=== PATIENT | male | born 1955 | race African-American/Black ===

== ENCOUNTER 2018-07-23 13:28 | Observation (INO) | payer BC ==
--- NOTE | 2018-07-23 14:32 | PDOC ---
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 Patient states the vision has returned to normal and the slurred speech has resolved on its own. Patient reports similar symptoms 4 months ago while playing basketball while dehydrated. This happened two other times since then. Patient was put on ASA and plavix after the carotid endarterectomy but notes he never received the plavix. Patient also has not followed with his PCP. The patient denies chest pain, shortness of breath, headache. Denies fever, chills, nausea, vomit, diarrhea and constipation. De nies dysuria, frequency, urgency and hematuria. Allergies: NKA Past surgical history: as stated in HPI Social history: No reported alcohol, drug or cigarette use. - Physicial Exam PE: 07/23/18 18:11 ADULT PE GENERAL: The patient is in no acute distress. HEAD: Normal with no signs of trauma. NECK: Normal range of motion, supple without lymphadenopathy, JVD, or masses. LUNGS: Breath sounds equal, clear to auscultation bilaterally. No wheezes, and no crackles. HEART:Regular rate and rhythm, normal S1 and S2 without murmur, rub or gallop. ABDOMEN: Soft, nontender, normoactive bowel sounds. No guarding, no rebound. No masses palpable. EXTREMITIES: Normal range of motion, no edema. No clubbing or cyanosis. No erythema, or tenderness. NEUROLOGICAL: Cranial nerves II through XII grossly intact. Normal speech. No focal neurological deficits. MUSCULOSKELETAL: Back non-tender to palpation, no CVA tenderness SKIN: Warm, Dry, normal turgor, no rashes or lesions noted. <Judy Gray - Last Filed: 07/23/18 18:11> - Resident Resident Name: Jamaal Chavez - ED Attending Attestation I have performed the following: I have examined & evaluated the patient, The case was reviewed & discussed with the resident, I agree w/resident's findings & plan, Exceptions are as noted - Medical Decision Making 07/23/18 15:11 EKG - NSR, rate of 65 bpm , axis nml, intervals nml, no st elevations or depressions, t waves upright CT - no acute intracranial pathology 07/23/18 17:42 Laboratory Tests 07/23/18 07/23/18 07/23/18 14:51 14:51 14:51 WBC 5.9 Hgb 14.0 Hct 40.3 Plt Count 182 INR 1.07 Sodium 139 Potassium 4.5 Chloride 104 Carbon Dioxide 29 BUN 23 H Creatinine 1.8 H Random Glucose 79 Creatine Kinase Index 0.9 CK-MB (CK-2) 1.9 Troponin I 0.[address] Nicholas (per hospitalist request, pt may not need to be admitted) Pt signed out to Dr Wren Possible TIA 07/24/18 11:29 <Tgiist Gtz - Last Filed: 07/24/18 11:30> *DC/Admit/Observation/Transfer <Judy Gray - Last Filed: 07/23/18 18:11> - Discharge Dispostion Decision to Admit order: Yes <Tigist Gtz - Last Filed: 07/24/18 11:30> Diagnosis at time of Disposition: TIA (transient ischemic attack) - Discharge Dispostion Condition at time of disposition: Stable
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
[2018-07-23 15:07] LABS: BASO % 0.5 % (0-2.0); EOS % 2.1 % (0-4.5); HEMATOCRIT 40.3 % (35.4-49); LYMPH % 22.7 % (8-40); MCH 31.4 pg (25.7-33.7); MCHC 34.8 g/dl (32.0-35.9); MEAN CELL VOLUME 90.3 fl (80-96); MEAN PLT VOLUME 8.2 fl (7.5-11.1); MONO % 10.4 % (3.8-10.2); NEUT % 64.3 % (42.8-82.8); PLATELET COUNT 182 K/MM3 (134-434); RBC 4.47 M/mm3 (4.00-5.60); RDW 13.9 % (11.9-15.9); WHITE BLOOD COUNT 5.9 K/mm3 (4.0-10.0)
[2018-07-23 15:22] LABS: INR 1.07 (0.83-1.09); PROTHROMBIN TIME (PATIENT) 12.6 SEC (9.7-13.0)
[2018-07-23 15:39] LABS: ALBUMIN 3.7 g/dl (3.4-5.0); ALK PHOS 73 U/L (45-117); ANION GAP 6 MMOL/L (8-16); BILIRUBIN,TOTAL 0.5 mg/dL (0.2-1); BLOOD UREA NITROGEN 23 mg/dL (7-18); CHLORIDE 104 mmol/L (98-107); CHOLESTEROL 225 mg/dL (50-200); CO2 29 mmol/L (21-32); CREATININE 1.8 mg/dL (0.55-1.3); GLUCOSE,RANDOM 79 mg/dL (74-106); HDL CHOLESTEROL 98 mg/dL (40-60); POTASSIUM 4.5 mmol/L (3.5-5.1); SGOT/AST 22 U/L (15-37); SGPT/ALT 25 U/L (13-61); SODIUM 139 mmol/L (136-145); TOT PROT 6.7 g/dl (6.4-8.2); TRIGLYCERIDES 47 mg/dL (0-150)
[2018-07-23] MEDS ORDERED: SODIUM CHLORIDE 1,000 ML IV SCH (16:30)
[2018-07-23 16:45] LABS: URINE APPEARANCE CLEAR; URINE BILIRUBIN NEGATIVE (<2.0 mg/dL); URINE COLOR LTYELLOW; URINE GLUCOSE (UA) NEGATIVE (NEGATIVE); URINE KETONE TRACE (NEGATIVE); URINE LEUK ESTERASE NEGATIVE (NEGATIVE); URINE NITRITE NEGATIVE (NEGATIVE); URINE PROTEIN NEGATIVE (NEGATIVE); URINE UROBILINOGEN NEGATIVE mg/dL (0.2-1.0)
[2018-07-23 17:34] LABS: EPI CELLS RARE /HPF (FEW); URINE MUCUS RARE
--- NOTE | 2018-07-23 20:36 | PDOC ---
*Physical Exam - Vital Signs Last Vital Signs Temp Pulse Resp BP Pulse Ox 97.2 F L 70 18 142/80 100 07/23/18 13:28 07/23/18 18:04 07/23/18 18:04 07/23/18 18:04 07/23/18 18:04 ED Treatment Course - LABORATORY CBC & Chemistry Diagram: 07/23/18 14:51 07/24/18 05:49 - ADDITIONAL ORDERS Additional order review: Laboratory Results 07/23/18 07/23/18 07/23/18 14:51 14:51 14:39 PT with INR 12.60 INR 1.07 Sodium 139 Potassium 4.5 Chloride 104 Carbon Dioxide 29 Anion Gap 6 L BUN 23 H Creatinine 1.8 H Creat Clearance w eGFR 38.55 Random Glucose 79 Calcium 9.0 Total Bilirubin 0.5 AST 22 ALT 25 Alkaline Phosphatase 73 Creatine Kinase 196 Creatine Kinase Index 0.9 CK-MB (CK-2) 1.9 Troponin I 0.03 Total Protein 6.7 Albumin 3.7 Triglycerides 47 Cholesterol 225 H Total LDL Cholesterol 102 H HDL Cholesterol 98 H Urine Color Ltyellow Urine Appearance Clear Urine pH 5.0 Ur Specific [place] 1.014 Urine Protein Negative Urine Glucose (UA) Negative Urine Ketones Trace H Urine Blood 1+ H Urine Nitrite Negative Urine Bilirubin Negative Urine Urobilinogen Negative Ur Leukocyte Esterase Negative Urine WBC (Auto) 2 Urine RBC (Auto) 1 Ur Epithelial Cells Rare Urine Mucus Rare 07/23/18 14:51 RBC 4.47 MCV 90.3 MCHC 34.8 RDW 13.9 MPV 8.2 Neutrophils % 64.3 Lymphocytes % 22.7 Monocytes % 10.4 H Eosinophils % 2.1 Basophils % 0.5 - Consult/PCP Time Called: 16:31 (Left message with answering service -Dr. Harrison - Neuro consult) Medical Decision Making - Medical Decision Making 07/23/18 20:35 I received pt on signout and he is awaiting neuro consult at bedside. Neuro is here evaluating the patient. 07/24/18 00:43 Patient Name: TIERNEY MENJIVAR THIS IS A PRELIMINARY REPORT FROM [facility] DATE OF SERVICE: 2018-07-23 22:12:20 IMAGES: [id number] EXAM: NECK MRA WITHOUT CONTRAST HISTORY: Carotid stenosis COMPARISON: None. FINDINGS: Very limited study. Done without intravenous contrast. There is also some motion artifact. Right carotid: Most of the right common carotid artery is not visualized. Difficult to determine if this is due to occlusion or stenosis. Some of this could be due to artifact. The distal right common carotid artery is patent. The bifurcation is patent. The visualized portion of the cervical right internal carotid artery is patent without stenosis. Left carotid: The entire cervical left common and internal carotid artery is nonvisualized and may be occluded. Vertebrals The cervical right vertebral artery is dominant and appears patent. The left vertebral artery is small. The proximal portion of the left vertebral artery is not visualized. Given the limitations of this study, CT angiogram of the neck may be more helpful. THIS DOCUMENT HAS BEEN ELECTRONICALLY SIGNED 07/24/18 19:46 Pt will be admitted, given that he had NEW dizziness and gait instability that began today, despite his impressive carotid history. New findings. He needs to be evaluated with serial MRIs and neuro input. *DC/Admit/Observation/Transfer Diagnosis at time of Disposition: TIA (transient ischemic attack) - Discharge Dispostion Condition at time of disposition: Stable - Referrals - Patient Instructions - Post Discharge Activity
--- NOTE | 2018-07-23 21:03 | CON.NEURO ---
Consult Consult Specialty:: Cristopher Referred by:: Er - History of Present Illness History of Present Illness: 62 years old man AA with PMH CAd OA Carotid stenossi RCEA-stent Stage OV neck cancer ?? SCC presented with bright light and slurred speech and walking problem No fall No recent travel No headache No CP pr pa;[place] Had one migraine at age 18 Seen in [facility] Er Stable Back to his baseline - History Source History Provided By: Patient, Medical Record Limitations to Obtaining History: No Limitations - Alcohol/Substance Use Hx Alcohol Use: No - Smoking History Smoking history: Never smoked Have you smoked in the past 12 months: No Home Medications - Allergies Allergies/Adverse Reactions: Allergies Allergy/AdvReac Type Severity Reaction Status Date / Time No Known Allergies Allergy Verified 07/19/16 06:03 - Home Medications Home Medications: Ambulatory Orders Losartan Potassium [Cozaar] 25 mg PO BID 07/19/16 Simvastatin 20 mg PO HS 07/19/16 Family Disease History - Family Disease History Family History: Denies (cVA) Review of Systems - Review of Systems Constitutional: reports: No Symptoms Eyes: reports: No Symptoms Neurological: reports: No Symptoms Physical Exam-Neuro Vital Signs: Vital Signs Temperature 97.2 F L 07/23/18 13:28 Pulse Rate 70 07/23/18 18:04 Respiratory Rate 18 07/23/18 18:04 Blood Pressure 142/80 07/23/18 18:04 O2 Sat by Pulse Oximetry (%) 100 07/23/18 18:04 Constitutional: Yes: Well Nourished Neck: Yes: WNL Cardiovascular: Yes: WNL Labs: CBC, BMP 07/23/18 14:51 07/23/18 14:51 INR, PTT INR 1.07 (0.83-1.09) 07/23/18 14:51 - Neuro Exam Level Of Consciousness: Yes: Oriented to Person, Oriented to Place, Oriented to Time Eyes: Yes: PERRLA Speech: WNL Dominant Hand: Right Cranial Nerves II-XII Intact: Yes Gag: Present DTR's: 1+ Left Bicep, 1+ Right Bicep, 1+ Left Brachioradialis, 1+ Right Brachioradialis Response to light touch: Normal Response to pain prick: Normal Response to temperature: Normal Response to vibration: Normal Motor Strength: 3/5: Left Arm, Right Arm, Left Leg, Right Leg Imaging - Results Cat Scan: Image Reviewed Problem List - Problems (1) Ocular migraine Assessment/Plan: Bright light is not ischemic symptoms I am more worried about his right Carotid and his renal function NO CTA ANGIO due to dye ESR CRP Suggest HIV test MRA head and neck Admit to observe Nephrology consult Plavix Lipid panel Code(s): G43.109 - MIGRAINE WITH AURA, NOT INTRACTABLE, W/O STATUS MIGRAINOSUS
[2018-07-23] MEDS ORDERED: CLOPIDOGREL BISULFATE 75 MG TABLET (FP) PO ONE (21:04)
[2018-07-23] MEDS ORDERED: CLOPIDOGREL BISULFATE 75 MG TABLET (FP) ONE (21:18)
--- NOTE | 2018-07-23 22:04 | PN ---
Teaching Attending Note Name of Resident: Aisha Talley ATTENDING PHYSICIAN STATEMENT I saw and evaluated the patient. I reviewed the resident's note and discussed the case with the resident. I agree with the resident's findings and plan as documented. SUBJECTIVE: Seen and examined with resident; please see their note for further historical information. This is a patient with a history of CAD, Carotid A. Stenosis with known L complete occlusion who is s/p R-CEA, Stage IV Neck CA (s/p chemo/ radiation), migraine when younger, HTN. He presents after having an episode of 'bright lights' when everything appeared much brighter than normal that was, per his , associated with transient slurred speech and issues with ambulation; the aforementioned findings have since resolved and Neurology saw him in the ER who feels that this could be an occular migraine and are concerned about his R-CA. He was supposed to be on ASA and plavix for this but was having issues with paying for the plavix due to insurance. The patient was found to have elevated Cr to 1.8 (unknown if EDMUNDO or CKD as he has not been here before) which precluded him from CTA to assess carotids (duplex done which showed no flow in L and RVA with elevated peak systolic flow leading radiology to recommend a CTA); he thus had a MRV preformed. Will be brought to the floor on tele with a neurology consult and nephrology consult (which was recommended by neuro). He will be on observation. 10 sys ROS done and negative aside from HPI PMH and PSH reviewed FH asked and noncontributory Socially he is a nonsmoker and doesn't abuse alcohol Medication list reviewed and is pending reconciliation OBJECTIVE: VS, labs, imaging reviewed Labs show unremarkable CBC, coags. BMP shows Cr 1.8 and BUN of 23. TG wnl, total cholesterol 225, LDL 102, HDL 96 MRA neck pending final report; prelim shows R common CA not visualized ( artivact vs. occlusion, recommended CTA) alongside nonvisualized vertebral arteries; radiology recommends MRI of the brain to r/o posterior fossa infarct. ASSESSMENT AND PLAN: Patient presents with transient neurological findings; seen by neuro who are concerned about the patency of his R-carotid. Presenting sx have resolved. 1) Carotid A. Stenosis with Suspected Occular Migraine -Per neurology; defer ultimate workup and treatment to their service -Final report MRA pending; prelim was of poor quality and lead radiology to recommend CTA (which can't be done at this second due to elevated Cr); duplex reviewed. CTA to be ordered if renal function improves. -Checking ESR, CRP, HIV. Following neurology recomendations; please see their note for full details. Appreciate their input in the ongoing care of this patient. -Consider involving vascular sgy in the AM -Radiology recommends ordering MRI brain to evaluate for posterior fossa infarct which we will do. -Lipids elevated; will start high-intensity statin and extrapolate the ASCVD risk prior to DC to adjust the dose per guidelines 2) Elevated Cr (EDMUNDO vs. CKD) -Obtain FeNa; hold nephrotoxic medications and monitor BMP and UOP -Empirically hydrating with NS overnight -Would be helpful to check his old records to see what his baseline is 3) HLD -Started atorva 40 and will fully extrapolate ASCVD risk to place on appropriate dosing prior to DC -Monitor CMP with 1 week 4) History of Stage IV Neck CA -Followup OP with oncology; no acute issues. Being mindful of any radiation- induced changes 5) HTN FENA -NS@100 -PRN replete -Low fat -As tolerated, PT consult Full Code
--- NOTE | 2018-07-23 22:59 | HP ---
CHIEF COMPLAINT: bright vision PCP: HISTORY OF PRESENT ILLNESS: 62 y/o M with PMH stage 4 SCC R neck (s/p 30 days radiation, surgery 2003), HTN , R neck carotid endarterectomy w/stent (January 2018), known L total carotid occlusion, b/l cataracts, who presents to the ED c/o bright vision that started at 5PM this evening. States that he was at home, talking with his , when he noticed that everything in his field of vision appeared bright. Was not blurry. At this time, noticed that his speech became slurred and his gait became unsteady. Never noticed facial droop, MILLER, or other focal neurological deficits. Pt subsequently went to urgent care and was sent to [facility] ED for further evaluation. En route, states that in car when looking at his phone, it was so bright that his vision was obscured. Could not see the screen. Denies MILLER, fever , chills, SOB, chest pain , or pressure, or changes in urinary or bowel function at this time. ER course was notable for: (1) sx resolved (2) head CT (-) for acute changes (3) Recent Travel: denies PAST MEDICAL HISTORY: as above PAST SURGICAL HISTORY: as above, SCC R neck surgery 2003, R neck carotid endarterectomy w stent January 2018, L cataract surgery Social History: works in maintenance as a [employer] Smoking: denies Alcohol: denies Drugs: denies current use. used cocaine 20 yrs ago Family History: mother-DM, pancreatic CA. father- DM, heart dz Allergies No Known Allergies Allergy (Verified 07/19/16 06:03) HOME MEDICATIONS: Home Medications Medication Instructions Recorded Losartan Potassium [Cozaar] 25 mg PO DAILY 07/19/16 Simvastatin 20 mg PO HS 07/19/16 Gabapentin [Neurontin] 300 mg PO HS 07/23/18 REVIEW OF SYSTEMS CONSTITUTIONAL: Absent: fever, chills, diaphoresis, generalized weakness, malaise, loss of appetite, weight change HEENT: Absent: rhinorrhea, nasal congestion, throat pain, throat swelling, difficulty swallowing, mouth swelling, ear pain, eye pain, visual changes CARDIOVASCULAR: Absent: chest pain, syncope, palpitations, irregular heart rate, lightheadedness , peripheral edema RESPIRATORY: Absent: cough, shortness of breath, dyspnea with exertion, orthopnea, wheezing, stridor, hemoptysis GASTROINTESTINAL: Absent: abdominal pain, abdominal distension, nausea, vomiting, diarrhea, constipation, melena, hematochezia GENITOURINARY: Absent: dysuria, frequency, urgency, hesitancy, hematuria, flank pain, genital pain MUSCULOSKELETAL: Absent: myalgia, arthralgia, joint swelling, back pain, neck pain SKIN: Absent: rash, itching, pallor HEMATOLOGIC/IMMUNOLOGIC: Absent: easy bleeding, easy bruising, lymphadenopathy, frequent infections ENDOCRINE: Absent: unexplained weight gain, unexplained weight loss, heat intolerance, cold intolerance NEUROLOGIC: Absent: headache, focal weakness or paresthesias, dizziness, unsteady gait, seizure, mental status changes, bladder or bowel incontinence PSYCHIATRIC: Absent: anxiety, depression, suicidal or homicidal ideation, hallucinations. PHYSICAL EXAMINATION Vital Signs - 24 hr 07/23/18 07/23/18 13:28 18:04 Temperature 97.2 F L Pulse Rate 67 Pulse Rate [ 70 Left Radial] Respiratory 16 18 Rate Blood Pressure 163/96 Blood Pressure 142/80 [Left Arm] O2 Sat by Pulse 100 100 Oximetry (%) GENERAL: Very pleasant. Awake, alert, and fully oriented, in no acute distress. HEAD: Normal with no signs of trauma. EYES: Pupils equal, round and reactive to light, extraocular movements intact, sclera anicteric, conjunctiva clear. EARS, NOSE, THROAT: Ears normal, nares patent, oropharynx clear without exudates. Moist mucous membranes. NECK: Normal range of motion, supple LUNGS: Breath sounds equal, clear to auscultation bilaterally. No wheezes, and no crackles. No accessory muscle use. HEART: Regular rate and rhythm, normal S1 and S2 without murmur, rub or gallop. ABDOMEN: Soft, nontender, not distended, normoactive bowel sounds, no guarding LOWER EXTREMITIES: 2+ pt pulses, warm, well-perfused. No calf tenderness. No peripheral edema. NEUROLOGICAL: Cranial nerves II-XII intact. sensation intact. 5/5 motor strength upper and lower ext. no pronator drift PSYCHIATRIC: Cooperative. Good eye contact. SKIN: Warm, dry, normal turgor Laboratory Results - last 24 hr 07/23/18 07/23/18 07/23/18 14:39 14:51 14:51 WBC 5.9 RBC 4.47 Hgb 14.0 Hct 40.3 MCV 90.3 MCH 31.4 MCHC 34.8 RDW 13.9 Plt Count 182 MPV 8.2 Absolute Neuts (auto) 3.8 Neutrophils % 64.3 Lymphocytes % 22.7 Monocytes % 10.4 H Eosinophils % 2.1 Basophils % 0.5 Nucleated RBC % 0 PT with INR 12.60 INR 1.07 Sodium Cholesterol Total LDL Cholesterol HDL Cholesterol Urine Color Ltyellow Urine Appearance Clear Urine pH 5.0 Ur Specific [place] 1.014 Urine Protein Negative Urine Glucose (UA) Negative Urine Ketones Trace H Urine Blood 1+ H Urine Nitrite Negative Urine Bilirubin Negative Urine Urobilinogen Negative Ur Leukocyte Esterase Negative Urine WBC (Auto) 2 Urine RBC (Auto) 1 Ur Epithelial Cells Rare Urine Mucus Rare 07/23/18 14:51 RBC Nucleated RBC % INR Sodium 139 Potassium 4.5 Chloride 104 Carbon Dioxide 29 Anion Gap 6 L BUN 23 H Creatinine 1.8 H Creat Clearance w eGFR 38.55 Random Glucose 79 Calcium 9.0 Total Bilirubin 0.5 AST 22 ALT 25 Alkaline Phosphatase 73 Creatine Kinase 196 Creatine Kinase Index 0.9 CK-MB (CK-2) 1.9 Troponin I 0.03 Total Protein 6.7 Albumin 3.7 Triglycerides 47 Cholesterol 225 H Total LDL Cholesterol 102 H HDL Cholesterol 98 H Urine Color Urine Mucus Head CT: no acute intracranial pathology Carotid US: no definite flow in extracranial L carotid artery including the common carotid, internal carotid, external carotid segments. the reported US sensitivity and specificity for complete carotid a. occlusion is approximately 90%. evaluation of the extracranial R carotid a. demonstrates an elevated peak systolic flow velocity of 397 cm/s at the level of the mid common carotid a. as well as a somewhat elevated peak systolic flow velocity of 128 cm/s at the level of the carotid bulb. however in the setting of apparent contralateral carotid a occlusion, elevated flow velocities are not considered reliable in the detection of a hemodynamically significant stenosis. consider additional eval using CT angio. the vertebral aa. appear to demonstrate antegrade flow. ASSESSMENT/PLAN: 62 y/o M with PMH stage 4 SCC R neck (s/p 30 days radiation, surgery 2003), HTN , R neck carotid endarterectomy w/stent (January 2018), known L total carotid occlusion, b/l cataracts, who presents to the ED c/o bright vision that started at 5PM this evening. #Ocular migraine -with visual aura. does not fit sx TIA with bright vision -f/u MRA head and neck. no CTA b/c renal fnc. may need vascular pending result -c/w plavix, asa 81 -f/u ESR, CRP -stroke obs #?EDMUNDO, ?CKD -Cr 1.8- unclear whether or acute or chronic. need to know baseline. will need files from primary -will give gentle IVF -will calculate FEna once urine Na, creatinine return -recheck tomorrow. #F/E/N IV NS 42 cc/hr gentle hydration continue to follow lytes NPO until bedside swallow eval. then can eat #PPX DVT PPX: ambulation, on plavix #Dispo stroke obs Visit type - Emergency Visit Emergency Visit: Yes ED Registration Date: 07/23/18 Care time: The patient presented to the Emergency Department on the above date and was hospitalized for further evaluation of their emergent condition. - New Patient This patient is new to me today: Yes Date on this admission: 07/24/18 - Critical Care Critical Care patient: No
[2018-07-24] MEDS ORDERED: SODIUM CHLORIDE 1,000 ML IV SCH (01:15)
[2018-07-24 06:31] LABS: ANION GAP 6 MMOL/L (8-16); BLOOD UREA NITROGEN 20 mg/dL (7-18); CALCIUM 8.5 mg/dL (8.5-10.1); CHLORIDE 106 mmol/L (98-107); CO2 29 mmol/L (21-32); CREATININE 1.4 mg/dL (0.55-1.3); GLUCOSE,RANDOM 89 mg/dL (74-106); POTASSIUM 3.8 mmol/L (3.5-5.1); SODIUM 140 mmol/L (136-145)
[2018-07-24] MEDS ORDERED: CLOPIDOGREL BISULFATE 75 MG TABLET (FP) PO SCH (10:00)
[2018-07-24] MEDS: ASPIRIN COATED 81 MG TABLET.EC PO SCH (10:45)
[2018-07-24] MEDS: CLOPIDOGREL BISULFATE 75 MG TABLET (FP) PO SCH (10:46)
--- NOTE | 2018-07-24 13:08 | PN ---
Teaching Attending Note Name of Resident: Xochitl Zuniga ATTENDING PHYSICIAN STATEMENT I saw and evaluated the patient. I reviewed the resident's note and discussed the case with the resident. I agree with the resident's findings and plan as documented. SUBJECTIVE: no fever or chills. No abd pain. no visual changes, no weakness, numbness or tingling. he reports sx of bright vision x 10 min yesterday proceeded with slurred speech and abnormal gait ( brief ) sx resolved. OBJECTIVE: NAD , AAOx3. HEENT: NC, AT, EOMI, round equal pupils, reactive to light. no facial droop. MMM. R neck with scarred skin and no erythema. no LAP in neck CV: RRR, no MRG Lungs: CTAB Ext: no edema or erythema. Abd: NT, NL BS. Neuro : EOMI, round equal pupils, reactive to light. no facial droop. tongue at mid line . sensation to light touch NL. nose to finger NL. strength 5/5 in upper and lower ext proximally and distally. reflexes 2+ knee jerk and biceps b/l ASSESSMENT AND PLAN: 62 y/o man with h/o SCC of neck s/p radiation and sx 15 yr ago, HTN, CAD, occluded L carotid Artery s/p CEA, migraines at younger age,and other medical problems who presented with visual disterbances. 1- Visual disturbances: possible occular migraine vs TIA. neuro exam is NL, and sx resolved. - MRI of brain pending - appreciate neuro input. - vertebral arteries on prelim MRA are not well visualized . will wait for final report - tele 2- Known occluded L carotid artery and R sided carotid CEA : MRA with poor quality and final report is pending - vascular 3- EDMUNDO : likely prerenal. - cont IVF - hold ARB - obtain records 4- HLP : statin dispo : observe on tele pending full w/u
--- NOTE | 2018-07-24 13:28 | EKG ---
Test Reason : Blood Pressure : / mmHG Vent. Rate : 065 BPM Atrial Rate : 065 BPM P-R Int : 132 ms QRS Dur : 092 ms QT Int : 436 ms P-R-T Axes : 063 048 052 degrees QTc Int : 453 ms NORMAL SINUS RHYTHM POSSIBLE LEFT ATRIAL ENLARGEMENT BORDERLINE ECG NO PREVIOUS ECGS AVAILABLE Confirmed by LAUREL VICENTE, GLO ([id number]) on 07/24/2018 1:27:26 PM Referred By: Confirmed By:GLO BARRAGAN MD
[2018-07-24 13:34] LABS: RPR REACTIVE 1:2 (NONREACTIVE)
--- NOTE | 2018-07-24 14:58 | PN ---
Physical Exam: SUBJECTIVE: Patient seen and examined. He is feeling good today, no numbness, tingling, vision problems, headache, weakness, sensation changes. OBJECTIVE: Vital Signs Period Temp Pulse Resp BP Sys/Shaffer Pulse Ox Last 24 Hr 97.9 F 70-76 18-18 119-142/78-80 100-100 GENERAL: The patient is awake, alert, and fully oriented, in no acute distress. HEAD: Normal with no signs of trauma. EYES: PERRL, extraocular movements intact, sclera anicteric, conjunctiva clear. ENT: Moist mucous membranes. NECK: Trachea midline, full range of motion, supple, hyperpigmentation nd scar on right side of the neck. LUNGS: Breath sounds equal, clear to auscultation bilaterally, no wheezes, no crackles, no accessory muscle use. HEART: Regular rate and rhythm, S1, S2 without murmur, rub or gallop. ABDOMEN: Soft, nontender, nondistended, normoactive bowel sounds, no guarding, no rebound, no hepatosplenomegaly, no masses. EXTREMITIES: 2+ pulses, warm, well-perfused, no edema. NEUROLOGICAL: Cranial nerves II through XII grossly intact. Normal speech, gait not observed. PSYCH: Normal mood, normal affect. SKIN: Warm, dry, normal turgor, no rashes. Laboratory Results - last 24 hr 07/23/18 07/23/18 07/23/18 14:39 14:51 14:51 WBC 5.9 RBC 4.47 Hgb 14.0 Hct 40.3 MCV 90.3 MCH 31.4 MCHC 34.8 RDW 13.9 Plt Count 182 MPV 8.2 Absolute Neuts (auto) 3.8 Neutrophils % 64.3 Lymphocytes % 22.7 Monocytes % 10.4 H Eosinophils % 2.1 Basophils % 0.5 Nucleated RBC % 0 ESR PT with INR 12.60 INR 1.07 Sodium Potassium Chloride Carbon Dioxide Anion Gap BUN Creatinine Creat Clearance w eGFR Random Glucose Hemoglobin A1c % Calcium Total Bilirubin AST ALT Alkaline Phosphatase Creatine Kinase Creatine Kinase Index CK-MB (CK-2) Troponin I C-Reactive Protein Total Protein Albumin Triglycerides Cholesterol Total LDL Cholesterol HDL Cholesterol Vitamin B12 Urine Color Ltyellow Urine Appearance Clear Urine pH 5.0 Ur Specific [place] 1.014 Urine Protein Negative Urine Glucose (UA) Negative Urine Ketones Trace H Urine Blood 1+ H Urine Nitrite Negative Urine Bilirubin Negative Urine Urobilinogen Negative Ur Leukocyte Esterase Negative Urine WBC (Auto) 2 Urine RBC (Auto) 1 Ur Epithelial Cells Rare Urine Mucus Rare Ur Random Sodium Urine Creatinine RPR Titer 07/23/18 07/24/18 07/24/18 14:51 05:49 05:49 WBC RBC Hgb Hct MCV MCH MCHC RDW Plt Count MPV Absolute Neuts (auto) Neutrophils % Lymphocytes % Monocytes % Eosinophils % Basophils % Nucleated RBC % ESR PT with INR INR Sodium 139 140 Potassium 4.5 3.8 Chloride 104 106 Carbon Dioxide 29 29 Anion Gap 6 L 6 L BUN 23 H 20 H Creatinine 1.8 H 1.4 H Creat Clearance w eGFR 38.55 51.52 Random Glucose 79 89 Hemoglobin A1c % 5.6 Calcium 9.0 8.5 Total Bilirubin 0.5 AST 22 ALT 25 Alkaline Phosphatase 73 Creatine Kinase 196 Creatine Kinase Index 0.9 CK-MB (CK-2) 1.9 Troponin I 0.03 C-Reactive Protein Total Protein 6.7 Albumin 3.7 Triglycerides 47 Cholesterol 225 H Total LDL Cholesterol 102 H HDL Cholesterol 98 H Vitamin B12 395 Urine Color Urine Appearance Urine pH Ur Specific [place] Urine Protein Urine Glucose (UA) Urine Ketones Urine Blood Urine Nitrite Urine Bilirubin Urine Urobilinogen Ur Leukocyte Esterase Urine WBC (Auto) Urine RBC (Auto) Ur Epithelial Cells Urine Mucus Ur Random Sodium Urine Creatinine RPR Titer 07/24/18 07/24/18 07/24/18 06:00 08:30 08:30 WBC RBC Hgb Hct MCV MCH MCHC RDW Plt Count MPV Absolute Neuts (auto) Neutrophils % Lymphocytes % Monocytes % Eosinophils % Basophils % Nucleated RBC % ESR PT with INR INR Sodium Potassium Chloride Carbon Dioxide Anion Gap BUN Creatinine Creat Clearance w eGFR Random Glucose Hemoglobin A1c % Calcium Total Bilirubin AST ALT Alkaline Phosphatase Creatine Kinase Creatine Kinase Index CK-MB (CK-2) Troponin I C-Reactive Protein 0.9 H Total Protein Albumin Triglycerides Cholesterol Total LDL Cholesterol HDL Cholesterol Vitamin B12 Urine Color Urine Appearance Urine pH Ur Specific [place] Urine Protein Urine Glucose (UA) Urine Ketones Urine Blood Urine Nitrite Urine Bilirubin Urine Urobilinogen Ur Leukocyte Esterase Urine WBC (Auto) Urine RBC (Auto) Ur Epithelial Cells Urine Mucus Ur Random Sodium 73 Urine Creatinine 203.0 H RPR Titer Reactive 1:2 H 07/24/18 08:31 WBC RBC Hgb Hct MCV MCH MCHC RDW Plt Count MPV Absolute Neuts (auto) Neutrophils % Lymphocytes % Monocytes % Eosinophils % Basophils % Nucleated RBC % ESR 15 PT with INR INR Sodium Potassium Chloride Carbon Dioxide Anion Gap BUN Creatinine Creat Clearance w eGFR Random Glucose Hemoglobin A1c % Calcium Total Bilirubin AST ALT Alkaline Phosphatase Creatine Kinase Creatine Kinase Index CK-MB (CK-2) Troponin I C-Reactive Protein Total Protein Albumin Triglycerides Cholesterol Total LDL Cholesterol HDL Cholesterol Vitamin B12 Urine Color Urine Appearance Urine pH Ur Specific [place] Urine Protein Urine Glucose (UA) Urine Ketones Urine Blood Urine Nitrite Urine Bilirubin Urine Urobilinogen Ur Leukocyte Esterase Urine WBC (Auto) Urine RBC (Auto) Ur Epithelial Cells Urine Mucus Ur Random Sodium Urine Creatinine RPR Titer Active Medications Generic Name Dose Route Start Last Admin Trade Name Freq PRN Reason Stop Dose Admin Aspirin 81 mg 07/24/18 10:00 07/24/18 10:45 Ecotrin - PO 81 mg DAILY ZOYA Administration Atorvastatin Calcium 40 mg 07/24/18 22:00 Lipitor - PO HS ZOYA Clopidogrel Bisulfate 75 mg 07/24/18 10:00 07/24/18 10:46 Plavix - PO 75 mg DAILY ZOYA Administration Sodium Chloride 1,000 mls @ 100 mls/hr 07/24/18 01:15 07/24/18 02:26 Normal Saline - IV 100 mls/hr ASDIR ZOYA Administration Head CT: no acute intracranial pathology Carotid US: no definite flow in extracranial L carotid artery including the common carotid, internal carotid, external carotid segments. the reported US sensitivity and specificity for complete carotid a. occlusion is approximately 90%. evaluation of the extracranial R carotid a. demonstrates an elevated peak systolic flow velocity of 397 cm/s at the level of the mid common carotid a. as well as a somewhat elevated peak systolic flow velocity of 128 cm/s at the level of the carotid bulb. however in the setting of apparent contralateral carotid a occlusion, elevated flow velocities are not considered reliable in the detection of a hemodynamically significant stenosis. consider additional eval using CT angio. the vertebral aa. appear to demonstrate antegrade flow. ASSESSMENT/PLAN: 62 y/o M with PMH stage 4 SCC R neck (s/p 30 days radiation, surgery 2003), HTN , R neck carotid endarterectomy w/stent (January 2018), known L total carotid occlusion, b/l cataracts, who presents to the ED c/o bright vision that started at 5PM this evening. Ocular migraine r/o stroke -f/u MRA head and neck, -c/w plavix, asa 81 -f/u ESR, CRP -stroke obs -speech and swallow -resumed low Na diet -Vascular surgery consulted EDMUNDO -Cr 1.8- unclear whether or acute or chronic, improved 1.4 today, will f/u with PCP on Thursday PCP Dr Isis Light [phone] -continue 1/2 NS at 100 cc/hr -f/u Dr Thao recommendations -f/u renal US Hypothyroidism: -cont Levothyroxin 50 mcg F/E/N 1/2 NS/no changes/Low a PPX DVT PPX: plavix Dispo stroke obs Medications confirmed with pharmacy. Problem List - Problems (1) EDMUNDO (acute kidney injury) Code(s): N17.9 - ACUTE KIDNEY FAILURE, UNSPECIFIED (2) Ocular migraine Code(s): G43.109 - MIGRAINE WITH AURA, NOT INTRACTABLE, W/O STATUS MIGRAINOSUS (3) Hypertension Code(s): I10 - ESSENTIAL (PRIMARY) HYPERTENSION Visit type - Emergency Visit Emergency Visit: Yes ED Registration Date: 07/23/18 Care time: The patient presented to the Emergency Department on the above date and was hospitalized for further evaluation of their emergent condition. - New Patient This patient is new to me today: Yes Date on this admission: 07/24/18 - Critical Care Critical Care patient: No - Discharge Referral Referred to [facility] No
[2018-07-24 15:12] LABS: TREPONEMA ANTIBODY REACTIVE (NONREACTIVE)
--- NOTE | 2018-07-24 17:20 | CONSULT ---
Consult Consult Specialty:: Nephrology Reason for Consultation:: EMDUNDO - History of Present Illness Chief Complaint: slurred speech and change in vision History of Present Illness: Pt is a 62 year old male with pmhx of SCC of right neck and HTN who presents to the ER with slurred speech and visual disturbance. I was called to evaluate him as his creatinine was elevated. He denies history of CKD. He denies dysuria or hematuria. He is on hctz at home for htn. He denies nsaid use. He denies family hx of renal disease. He denies lower ext edema. He denies shortness of breath or chest pain. - History Source History Provided By: Patient - Past Medical History Cardio/Vascular: Yes: HTN, Hyperlipdemia Heme/Onc: Yes: Other (SCC neck) - Alcohol/Substance Use Hx Alcohol Use: No - Smoking History Smoking history: Never smoked Have you smoked in the past 12 months: No Home Medications - Allergies Allergies/Adverse Reactions: Allergies Allergy/AdvReac Type Severity Reaction Status Date / Time No Known Allergies Allergy Verified 07/19/16 06:03 - Home Medications Home Medications: Ambulatory Orders Losartan Potassium [Cozaar] 25 mg PO DAILY 07/19/16 Simvastatin 20 mg PO HS 07/19/16 Gabapentin [Neurontin] 300 mg PO HS 07/23/18 Family Disease History - Family Disease History Family History: Denies Review of Systems - Review of Systems Constitutional: reports: Malaise Eyes: reports: Blurred Vision, Photophobia, Recent Change in Vision HENT: reports: No Symptoms Neck: reports: No Symptoms Cardiovascular: reports: No Symptoms Respiratory: reports: No Symptoms Gastrointestinal: reports: No Symptoms Genitourinary: reports: No Symptoms Musculoskeletal: reports: No Symptoms Integumentary: reports: No Symptoms Neurological: reports: Change in Speech Endocrine: reports: No Symptoms Hematology/Lymphatic: reports: No Symptoms Psychiatric: reports: No Symptoms Physical Exam Vital Signs: Vital Signs Temperature 97.9 F 07/24/18 06:34 Pulse Rate 76 07/24/18 06:34 Respiratory Rate 18 07/24/18 06:34 Blood Pressure 119/78 07/24/18 06:34 O2 Sat by Pulse Oximetry (%) 100 07/24/18 06:34 Constitutional: Yes: Calm Eyes: Yes: Conjunctiva Clear HENT: Yes: Atraumatic Neck: Yes: Supple Cardiovascular: Yes: S1, S2 Respiratory: Yes: CTA Bilaterally Gastrointestinal: Yes: Normal Bowel Sounds, Soft Renal/: Yes: WNL Musculoskeletal: Yes: WNL Edema: No Neurological: Yes: Oriented Psychiatric: Yes: Oriented Labs: CBC, BMP 07/23/18 14:51 07/24/18 05:49 Laboratory Tests 07/23/18 07/23/18 07/24/18 14:39 14:51 05:49 Potassium 3.8 Creatinine 1.8 H 1.4 H Urine Blood 1+ H Imaging - Results Chest X-ray: Report Reviewed Problem List - Problems (1) EDMUNDO (acute kidney injury) Code(s): N17.9 - ACUTE KIDNEY FAILURE, UNSPECIFIED (2) Ocular migraine Code(s): G43.109 - MIGRAINE WITH AURA, NOT INTRACTABLE, W/O STATUS MIGRAINOSUS (3) Eye pain Code(s): H57.10 - OCULAR PAIN, UNSPECIFIED EYE (4) Hypertension Code(s): I10 - ESSENTIAL (PRIMARY) HYPERTENSION Assessment/Plan Current Medications Generic Name Dose Route Start Last Admin Trade Name Ben PRN Reason Stop Dose Admin Aspirin 81 mg 07/24/18 10:00 07/24/18 10:45 Ecotrin - PO 81 mg DAILY ZOYA Administration Atorvastatin Calcium 40 mg 07/24/18 22:00 Lipitor - PO HS ZOYA Clopidogrel Bisulfate 75 mg 07/24/18 10:00 07/24/18 10:46 Plavix - PO 75 mg DAILY ZOYA Administration Sodium Chloride 1,000 mls @ 100 mls/hr 07/24/18 01:15 07/24/18 02:26 Normal Saline - IV 100 mls/hr ASDIR ZOYA Administration Impression 1. EDMUNDO 2. HTN 3. hx SCC 4. occular migraine Plan - check renal ultrasound - automatic hemmer is improving - hold arb and thiazide for now - cont fluids, change to 1/2 ns - repeat labs in am - will need outpt workup Dr Thao
[2018-07-24] MEDS ORDERED: SODIUM CHLORIDE 0.45% 1,000 ML IV SCH (17:30)
[2018-07-24] MEDS ORDERED: ATORVASTATIN CA 10 MG TABLET (FP) PO SCH (22:00)
[2018-07-24] MEDS ORDERED: ATORVASTATIN CA 40 MG TABLET (FP) PO SCH (22:00)
[2018-07-25] MEDS ORDERED: LEVOTHYROXINE NA 50 MCG TABLET (FP) PO SCH (06:00)
[2018-07-25 07:48] LABS: ALBUMIN 3.1 g/dl (3.4-5.0); ALK PHOS 71 U/L (45-117); ANION GAP 7 MMOL/L (8-16); BILIRUBIN,TOTAL 0.4 mg/dL (0.2-1); BLOOD UREA NITROGEN 13 mg/dL (7-18); CALCIUM 8.8 mg/dL (8.5-10.1); CHLORIDE 106 mmol/L (98-107); CO2 26 mmol/L (21-32); GLUCOSE,RANDOM 90 mg/dL (74-106); POTASSIUM 4.1 mmol/L (3.5-5.1); SGOT/AST 15 U/L (15-37); SGPT/ALT 21 U/L (13-61); SODIUM 139 mmol/L (136-145)
[2018-07-25 09:29] VITALS: PULSE 72; TEMP 98
[2018-07-25] MEDS: CLOPIDOGREL BISULFATE 75 MG TABLET (FP) PO SCH (10:57)
[2018-07-25] MEDS: ASPIRIN COATED 81 MG TABLET.EC PO SCH (10:57)
[2018-07-25 11:04] VITALS: BP 180/98
--- NOTE | 2018-07-25 13:19 | PN ---
Progress Note, Physician History of Present Illness: events noted Chart reviewed Patient seen on telemetry Since admission patient with no symptoms no headache no blurry vision or double vision no difficulty with speech no difficulty swallowing no recurrence of the visual symptoms with the bright light. I looked at the MRI of the brain which revealed no evidence of acute pathology. MRA of the head and neck results are still pending. - Current Medication List Current Medications: Active Medications Aspirin (Ecotrin -) 81 mg PO DAILY [facility] Last Admin: 07/25/18 10:57 Dose: 81 mg Atorvastatin Calcium (Lipitor -) 40 mg PO HS [facility] Last Admin: 07/24/18 22:06 Dose: 40 mg Clopidogrel Bisulfate (Plavix -) 75 mg PO DAILY [facility] Last Admin: 07/25/18 10:57 Dose: 75 mg Sodium Chloride (1/2 Normal Saline) 1,000 mls @ 75 mls/hr IV ASDIR [facility] Last Admin: 07/24/18 23:00 Dose: 75 mls/hr Levothyroxine Sodium (Synthroid -) 50 mcg PO DAILY@0700 [facility] Last Admin: 07/25/18 06:38 Dose: 50 mcg - Objective Vital Signs: Vital Signs Temperature 98 F 07/25/18 09:00 Pulse Rate 72 07/25/18 09:00 Respiratory Rate 20 07/25/18 09:00 Blood Pressure 180/98 H 07/25/18 09:00 O2 Sat by Pulse Oximetry (%) 100 07/25/18 09:00 Constitutional: Yes: Well Nourished Eyes: Yes: WNL Neurological: Yes: Alert, Oriented, Babinski negative Labs: CBC, BMP 07/23/18 14:51 07/25/18 06:15 INR, PTT INR 1.07 (0.83-1.09) 07/23/18 14:51 Problem List - Problems (1) Ocular migraine Assessment/Plan: no evidence of acute stroke Carotid stenosis History of syphilis No evidence of neurosyphilis 1. Follow up the results of the MRA Neurologically patient can be discharged to follow-up with vascular surgery from [facility]. 3. 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 Code(s): G43.109 - MIGRAINE WITH AURA, NOT INTRACTABLE, W/O STATUS MIGRAINOSUS
--- NOTE | 2018-07-25 13:22 | PN ---
Progress Note, Physician History of Present Illness: Pt seen and examined at bedside. He is awake and alert. He denies dysuria. - Current Medication List Current Medications: Active Medications Aspirin (Ecotrin -) 81 mg PO DAILY [facility] Last Admin: 07/25/18 10:57 Dose: 81 mg Atorvastatin Calcium (Lipitor -) 40 mg PO HS [facility] Last Admin: 07/24/18 22:06 Dose: 40 mg Clopidogrel Bisulfate (Plavix -) 75 mg PO DAILY [facility] Last Admin: 07/25/18 10:57 Dose: 75 mg Sodium Chloride (1/2 Normal Saline) 1,000 mls @ 75 mls/hr IV ASDIR [facility] Last Admin: 07/24/18 23:00 Dose: 75 mls/hr Levothyroxine Sodium (Synthroid -) 50 mcg PO DAILY@0700 [facility] Last Admin: 07/25/18 06:38 Dose: 50 mcg - Objective Vital Signs: Vital Signs Temperature 98 F 07/25/18 09:00 Pulse Rate 72 07/25/18 09:00 Respiratory Rate 20 07/25/18 09:00 Blood Pressure 180/98 H 07/25/18 09:00 O2 Sat by Pulse Oximetry (%) 100 07/25/18 09:00 Constitutional: Yes: Calm Eyes: Yes: Conjunctiva Clear HENT: Yes: Atraumatic Neck: Yes: Supple Cardiovascular: Yes: S1, S2 Respiratory: Yes: CTA Bilaterally Gastrointestinal: Yes: Soft Genitourinary: Yes: WNL Musculoskeletal: Yes: WNL Edema: No Neurological: Yes: Oriented Psychiatric: Yes: Oriented Labs: CBC, BMP 07/23/18 14:51 07/25/18 06:15 INR, PTT INR 1.07 (0.83-1.09) 07/23/18 14:51 Problem List - Problems (1) EDMUNDO (acute kidney injury) Code(s): N17.9 - ACUTE KIDNEY FAILURE, UNSPECIFIED (2) Ocular migraine Code(s): G43.109 - MIGRAINE WITH AURA, NOT INTRACTABLE, W/O STATUS MIGRAINOSUS (3) Eye pain Code(s): H57.10 - OCULAR PAIN, UNSPECIFIED EYE (4) Hypertension Code(s): I10 - ESSENTIAL (PRIMARY) HYPERTENSION Assessment/Plan Current Medications Generic Name Dose Route Start Last Admin Trade Name Freq PRN Reason Stop Dose Admin Aspirin 81 mg 07/24/18 10:00 07/25/18 10:57 Ecotrin - PO 81 mg DAILY ZOYA Administration Atorvastatin Calcium 40 mg 07/24/18 22:00 07/24/18 22:06 Lipitor - PO 40 mg HS ZOYA Administration Clopidogrel Bisulfate 75 mg 07/24/18 10:00 07/25/18 10:57 Plavix - PO 75 mg DAILY ZOYA Administration Sodium Chloride 1,000 mls @ 75 mls/hr 07/24/18 17:30 07/24/18 23:00 1/2 Normal Saline IV 75 mls/hr ASDIR ZOYA Administration Levothyroxine Sodium 50 mcg 07/25/18 06:00 07/25/18 06:38 Synthroid - PO 50 mcg DAILY@0700 ZOYA Administration Laboratory Tests 07/24/18 06:00 RPR Titer Reactive 1:2 H T.pallidum Ab (MHA) Reactive Impression 1. EDMUNDO 2. HTN 3. hx SCC 4. occular migraine 5. positive rpr Plan - renal function is improved - renal ultrasound reviewed - bp is elevated - d/c fluids - restart losartan - monitor vitals - hold thiazide - repeat labs in am - will need outpt workup Dr Thao
[2018-07-25] MEDS ORDERED: LOSARTAN POTASSIUM 25 MG TABLET PO SCH (13:30)
--- NOTE | 2018-07-25 14:43 | PN ---
Progress Note (short form) - Note Progress Note: Subjective: no fever or chills. no pain, No MILLER , no weakness, no visual Objective: Vital Signs: Last Vital Signs Temp Pulse Resp BP Pulse Ox 98 F 72 20 180/98 H 100 07/25/18 09:00 07/25/18 09:00 07/25/18 09:00 07/25/18 09:00 07/25/18 09:00 Laboratory Results - last 24 hr 07/25/18 06:15 Sodium 139 Potassium 4.1 Chloride 106 Carbon Dioxide 26 Anion Gap 7 L BUN 13 Creatinine 1.0 Creat Clearance w eGFR > 60 Random Glucose 90 Calcium 8.8 Total Bilirubin 0.4 AST 15 ALT 21 Alkaline Phosphatase 71 Total Protein 6.0 L Albumin 3.1 L Physical Exam: NAD , AAOx3. HEENTMMM. R neck with scarred skin and no erythema. no LAP in neck CV: RRR, no MRG Lungs: CTAB Ext: no edema or erythema. Abd: NT, NL BS. Neuro : EOMI, round equal pupils, reactive to light. no facial droop. tongue at mid line . sensation to light touch NL. nose to finger NL. strength 5/5 in upper and lower ext proximally and distally. reflexes 2+ knee jerk and biceps b/l ASSESSMENT AND PLAN: 62 y/o man with h/o SCC of neck s/p radiation and sx 15 yr ago, HTN, CAD, occluded L carotid Artery s/p CEA, migraines at younger age,and other medical problems who presented with visual disterbances. 1- Visual disturbances: possible occular migraine . case d/w Dr. Nicholas - MRI of brain still pending , but was reviewed by Dr. Nicholas and no acute stroke was found. MRA of brain and MRA of neck report still pending. - vascular follow up can be done as out pt. patient understands he needs to follow with his vascular surgeon and that MRA /MRI reports need to be obtained - tele with no events - No LP needed per discussion with neuro 2- Known occluded L carotid artery and R sided carotid CEA : MRA with poor quality and final report is pending - vascular as out pt 3- EDMUNDO: likely prerenal. - resolved. cont home meds and po hydration . blood work in 1 week to determine if HCTZ need to be decreased or discontinued 4- - positive syphilis serology. treponemal and non treponemal test. pt has h/ o treated syphilis 15 yrs ago. no previous labs available. he was advised to follow with ID as old tests need to be obtained and compared ( non treponemal usually decrease and revert into nonreactive after treatment ) dispo : patient dose want to go home and will follow up with neuro , ID , PCP . Visit type - Emergency Visit Emergency Visit: Yes ED Registration Date: 07/23/18 Care time: The patient presented to the Emergency Department on the above date and was hospitalized for further evaluation of their emergent condition. - New Patient This patient is new to me today: No - Critical Care Critical Care patient: No - Discharge Referral Referred to [facility] Med P.C.: No
--- NOTE | 2018-07-25 17:45 | DS ---
Physical Examination Vital Signs: Vital Signs Temperature 98 F 07/25/18 09:00 Pulse Rate 72 07/25/18 09:00 Respiratory Rate 20 07/25/18 09:00 Blood Pressure 180/98 H 07/25/18 09:00 O2 Sat by Pulse Oximetry (%) 100 07/25/18 09:00 Findings/Remarks: NAD , AAOx3. HEENTMMM. R neck with scarred skin and no erythema. no LAP in neck CV: RRR, no MRG Lungs: CTAB Ext: no edema or erythema. Abd: NT, NL BS. Neuro : EOMI, round equal pupils, reactive to light. no facial droop. tongue at mid line . sensation to light touch NL. nose to finger NL. strength 5/5 in upper and lower ext proximally and distally. reflexes 2+ knee jerk and biceps b/l Labs: CBC, BMP 07/23/18 14:51 07/25/18 06:15 Discharge Summary Reason For Visit: TRANSIENT ISCHEMIC ATTACK Hospital Course: 62 y/o man with h/o SCC of neck s/p radiation and sx 15 yr ago, HTN, CAD, occluded L carotid Artery s/p CEA, migraines at younger age,and other medical problems who presented with visual disterbances described as bright lights with slurred speechand gait disturbance. on admission , he had CT scan which was neg ( head ) . he was seen by neuro and was felt to have ocular migraine . his imaging included MRI/MRA brain and MRA neck the results of which are still pending. he is known to have L sided complete occlusion of carotid artery and stenting and CEA of R side. the prelim tests were not good enough to evaluate vertebral circulation. he is to follow with vascular and neuro . he was continued on his aspirin at home he was also found to have EDMUNDO which resolved with IVF and was thought to be prerenal . he had no signs of obstruction on renal US. he was given script fo rblood work to evaluate the need for decreasing or stopping HCTZ. he was found to have positive syphilis serology. treponemal and non treponemal test. pt has h/o treated syphilis 15 yrs ago. no previous labs available. he was advised to follow with ID as old tests need to be obtained and compared ( non treponemal usually decrease and revert into nonreactive after treatment ) dispo : patient dose want to go home and will follow up with neuro , ID , PCP . Condition: Improved - Instructions Diet, Activity, Other Instructions: - please follow with your primary care doctor in 1 week. - you need blood work in 1 week, for your kidney function . send results to Your PCP . - please follow with Dr. Nicholas for you possible occular migraine - please follow with your vascular surgeon regarding the known vascular problems in carotid arteries. MRA of hte neck final results are pending and need to be followed by your doctor to evaluate the vertebral arteries. - also MRI of breain /MRA of brain results are pending and to be obtained by your doctor - call MD or come back if you have fever or any neurological symptoms - please follow with your infectious disease doctor regarding the syphilis serology. your old records and titers need to be obtained and compared . if you don't have one please follow with Dr. Nate caldera Referrals: Kelsie Sullivan MD [Staff Physician] - Jessica Nicholas MD [Staff Physician] - 1 Week Eric Marinelli [Non Staff, Medical] - 1 Week Disposition: HOME - Home Medications Comprehensive Discharge Medication List: Ambulatory Orders Losartan Potassium [Cozaar] 50 mg PO DAILY 07/19/16 Simvastatin 80 mg PO HS 07/19/16 Gabapentin [Neurontin] 300 mg PO HS 07/23/18 Aspirin [ASA -] 81 mg PO DAILY 07/24/18 Levothyroxine [Synthroid -] 50 mcg PO DAILY 07/24/18 Hydrochlorothiazide 25 mg PO DAILY 07/25/18 Miscellaneous Medical Supply [Outpatient Order] 1 each ASDIR #1 [facility] [place] patient is new to me today: No Emergency Visit: Yes ED Registration Date: 07/23/18 Care time: The patient presented to the Emergency Department on the above date and was hospitalized for further evaluation of their emergent condition. Critical Care patient: No - Discharge Referral Referred to [facility] Med P.C.: No
== END 2018-07-25 15:18 | disposition home or self-care (01) ==
LOC: JER 13:28 → JERBED 20:57 → J4W 07-24 20:05
PROVIDERS: ADMIT Internal Medicine; ATTEND Internal Medicine
PROC: 3E0337Z Introduction of Electrolytic and Water Balance Substance into Peripheral Vein, Percutaneous Approach (ICD-10-PCS; principal; 2018-07-23)
DX: G45.9 Transient cerebral ischemic attack, unspecified (principal); G43.109 Migraine with aura, not intractable, without status migrainosus; I65.21 Occlusion and stenosis of right carotid artery; R79.89 Other specified abnormal findings of blood chemistry; I10 Essential (primary) hypertension; Z85.828 Personal history of other malignant neoplasm of skin; N17.9 Acute kidney failure, unspecified; E03.9 Hypothyroidism, unspecified
CPT/HCPCS: 36415; 70450-TC; 70544-TC; 70547-TC; 76775-TC; 80048; 80053; 81003; 81015; 82465; 82550; 82553; 82570; 82607; 83036; 83090; 83718; 83721; 84300; 84478; 84484; 85025; 85610; 85651; 86140; 86593; 86780; 93005; 93010; 93880-TC; 99284-25; G0378; J7030

== ENCOUNTER 2022-04-21 20:26 | Emergency (ER) | payer BC ==
[2022-04-21 20:46] VITALS: BMI 19.3
[2022-04-21] MEDS ORDERED: GlUCAGON HUMAN RECOMBINANT 1 MG/VIAL IVPUSH ONE (21:24)
[2022-04-21 21:52] LABS: BASO % 0.3 % (0-2.0); EOS % 2.6 % (0-4.5); HEMATOCRIT 38.2 % (35.4-49); HEMOGLOBIN 12.4 GM/dL (11.7-16.9); LYMPH % 30.5 % (8-40); MCHC 32.5 g/dl (32.0-35.9); MEAN CELL VOLUME 89.1 fl (80-96); MEAN PLT VOLUME 7.8 fl (7.5-11.1); MONO % 9.4 % (3.8-10.2); NEUT % 57.2 % (42.8-82.8); PLATELET COUNT 212 10^3/uL (134-434); RBC 4.29 M/mm3 (4.00-5.60); RDW 15.1 % (11.9-15.9); WHITE BLOOD COUNT 4.1 K/mm3 (4.0-10.0)
[2022-04-21 21:57] LABS: INR 1.2 (0.83-1.09); PROTHROMBIN TIME (PATIENT) 13.8 SEC (9.7-13.0)
[2022-04-21 21:59] LABS: ACTIVATED PTT 34.1 SECONDS (25.2-36.5)
[2022-04-21] MEDS ORDERED: GLUCAGON 1 MG KIT ONE (22:07)
[2022-04-21 22:15] LABS: CALCIUM 9.6 mg/dL (8.5-10.1)
[2022-04-21 22:16] LABS: ALBUMIN 3.3 g/dl (3.4-5.0); BLOOD UREA NITROGEN 18.4 mg/dL (7-18)
[2022-04-21 22:21] LABS: BILIRUBIN,TOTAL 0.3 mg/dL (0.2-1)
[2022-04-22 00:44] VITALS: PULSE 74
[2022-04-22 07:10] VITALS: BP 162/90; RESP 20; TEMP 97.5
== END 2022-04-22 07:11 | disposition short-term general hospital (02) ==
LOC: JER 20:26
PROC: 3E033GC Introduction of Other Therapeutic Substance into Peripheral Vein, Percutaneous Approach (ICD-10-PCS; principal; 2022-04-21)
DX: T17.498A Other foreign object in trachea causing other injury, initial encounter (principal)
CPT/HCPCS: 36415; 70490-TC; 80053; 85025; 85610; 85730; 86850; 86900; 86901; 99285-25; C9803-CS; U0003; U0005

== ENCOUNTER 2022-07-25 00:26 | Emergency (ER) | payer BC ==
[2022-07-25 00:34] VITALS: BP 106/72; PULSE 94; RESP 20; TEMP 98.3; BMI 20.3
[2022-07-25] MEDS ORDERED: LIDOCAINE 5% TOPICAL PATCH TP ONE (01:28)
[2022-07-25] MEDS ORDERED: LIDOCAINE 5% TOPICAL PATCH ONE (02:46)
[2022-07-25] MEDS ORDERED: LIDOCAINE PATCH REMOVAL MC ONE (15:00)
== END 2022-07-25 03:40 | disposition home or self-care (01) ==
LOC: JER 00:26
DX: J09.X2 Influenza due to identified novel influenza A virus with other respiratory manifestations (principal)
CPT/HCPCS: 0241U-QW; 71046-TC-FY; 99284-25

== ENCOUNTER 2023-12-16 19:09 | Emergency (ER) | payer BC ==
[2023-12-16 19:18] VITALS: TEMP 98.1; BMI 19.8
[2023-12-16] MEDS ORDERED: LOSARTAN POTASSIUM 25 MG TABLET ONE (21:32)
[2023-12-16] MEDS: LOSARTAN POTASSIUM 25 MG TABLET PO ONE (21:39)
[2023-12-16 21:43] VITALS: BP 207/109; PULSE 74; RESP 24
== END 2023-12-16 21:45 | disposition home or self-care (01) ==
LOC: JER 19:09
DX: I10 Essential (primary) hypertension (principal)
CPT/HCPCS: 71046-TC-FY; 93005; 93010; 99283-25

== ENCOUNTER 2024-11-22 03:14 | Inpatient (IN) | payer OTHER, BC ==
[2024-11-22] MEDS ORDERED: LIDOCAINE HCL 2% JELLY 6 ML TP ONE (04:08)
[2024-11-22] MEDS: ACETAMINOPHEN 1000 MG/100 ML BAG IVPB ONE (04:30)
[2024-11-22 04:48] LABS: HEMOGLOBIN 9.7 g/dL (13.7-17.5)
[2024-11-22 04:49] LABS: ABSOLUTE IMMATURE GRANULOCYTES 0.03 x10^3/uL (0.0-0.031); BASOPHILS # 0.02 x10^3/uL (0.01-0.08); EOSINOPHIL % 1.1 % (0.8-7.0); EOSINOPHILS # 0.09 x10^3/uL (0.04-0.54); HEMATOCRIT 30.4 % (40.1-51.0); MCHC 31.9 g/dl (32.3-36.5); MEAN CELL VOLUME 92.4 fl (79.0-92.2); MEAN PLT VOLUME 10.5 fl (9.4-12.4); MONOCYTE # 0.37 x10^3/uL (0.30-0.82); MONOCYTE % 4.4 % (5.3-12.2); PLATELET COUNT 244 x10^3/uL (163-337); RDW 13.4 % (12.2-16.4)
[2024-11-22 04:57] LABS: INR 1.24 (0.83-1.09); PROTHROMBIN TIME (PATIENT) 13.6 SEC (9.7-13.0)
[2024-11-22 04:59] LABS: ACTIVATED PTT 25.1 SECONDS (25.2-36.5)
[2024-11-22 05:18] LABS: POTASSIUM 3.4 mmol/L (3.5-5.1)
[2024-11-22 05:20] LABS: CALCIUM 9.6 mg/dL (8.5-10.1)
[2024-11-22 05:21] LABS: ALBUMIN 3.3 g/dl (3.4-5.0); BLOOD UREA NITROGEN 18.9 mg/dL (7-18)
[2024-11-22 05:24] LABS: CREATININE 1.2 mg/dL (0.55-1.3)
[2024-11-22 05:26] LABS: BILIRUBIN,TOTAL 0.4 mg/dL (0.2-1); TOT PROT 6.8 g/dl (6.4-8.2)
[2024-11-22] MEDS ORDERED: MORPHINE SULFATE 2 MG/ML SYRINGE ONE (05:31)
[2024-11-22] MEDS: morphine CARPU-JECT 2 MG/1 ML DISP.SYRIN IVPUSH ONE (05:34)
[2024-11-22 05:37] LABS: URINE APPEARANCE Other; URINE BILIRUBIN Negative (NEGATIVE); URINE COLOR Red; URINE GLUCOSE (UA) Trace (NEGATIVE); URINE KETONE Negative (NEGATIVE); URINE LEUK ESTERASE Negative (NEGATIVE); URINE NITRITE Negative (NEGATIVE); URINE PROTEIN 3+ (NEGATIVE); URINE UROBILINOGEN 0.2 mg/dL (0.2-1.0)
[2024-11-22 05:56] LABS: HYALINE CASTS 0.12 /uL (0-3.1); URINE RBC 148.7 /uL (0-23.9); URINE WBC 0.1 /uL (0-25.8)
[2024-11-22 05:57] LABS: URINE BACTERIA 6.8 /uL (0-1359)
[2024-11-22] MEDS ORDERED: morphine SULFATE 4 MG/ML VIAL ONE ×2 (06:05→07:50)
[2024-11-22] MEDS: morphine CARPU-JECT 4 MG/1 ML DISP.SYRIN IVPUSH ONE ×2 (06:07→07:55)
[2024-11-22] MEDS ORDERED: LIDOCAINE HCL/PF 2% SDV 5ML VIAL ONE (09:00)
[2024-11-22] MEDS ORDERED: MIDAZOLAM HCL 2 MG/2 ML SINGLE DOSE VIAL ONE (09:01)
[2024-11-22] MEDS ORDERED: PROPOFOL 20 ML ONE (09:01)
[2024-11-22] MEDS: ceFAZolin SODIUM 1 GM VIAL IVPB ONE (09:20)
[2024-11-22] MEDS ORDERED: ceFAZolin SODIUM 1 GM VIAL ONE (09:24)
[2024-11-22] MEDS ORDERED: DEXAMETHASONE SOD PHOSPHATE 4 MG/1 ML VIAL ONE (09:24)
[2024-11-22] MEDS ORDERED: ONDANSETRON 4 MG/2 ML VIAL ONE (09:36)
[2024-11-22] MEDS ORDERED: PROMETHAZINE HCL 25 MG/1 ML VIAL IVPB PRN (10:05)
[2024-11-22] MEDS ORDERED: ONDANSETRON 4 MG/2 ML VIAL IVPUSH PRN (10:05)
[2024-11-22] MEDS: LACTATED RINGERS SOLUTION 1,000 ML IV SCH (10:30)
[2024-11-22] MEDS ORDERED: ACETAMINOPHEN 1000 MG/100 ML BAG IVPB PRN ×2 (13:11→21:42)
[2024-11-22] MEDS: FINASTERIDE 5 MG TABLET (FP) PO SCH (14:06)
[2024-11-22] MEDS: ATORVASTATIN CA 80 MG TABLET (FP) PO SCH (21:14)
[2024-11-22] MEDS ORDERED: SODIUM CHLORIDE 1,000 ML IV STA ×2 (21:26)
[2024-11-22] MEDS ORDERED: NALOXONE HCL 0.4 MG/ML VIAL IVPUSH PRN (21:40)
[2024-11-22 21:44] LABS: ARTERIAL BLD GAS O2 SATURATION 99.7 % (95-98); ARTERIAL BLOOD GAS BASE EXCESS 0.1 mmol/L (-2-2); ARTERIAL BLOOD GAS PO2 315.1 mmHg (80-100); ARTERIAL BLOOD GAS pH 7.403 (7.350-7.450)
[2024-11-22 21:45] LABS: ALLENS TEST POSITIVE
[2024-11-22] MEDS: NALOXONE HCL 0.4 MG/ML VIAL IVPUSH ONE (22:15)
[2024-11-22] MEDS: LACTATED RINGERS SOLUTION 1,000 ML/1,000 ML INFUS.BAG IV STA (22:15)
[2024-11-22] MEDS: SODIUM CHLORIDE 1,000 ML IV SCH (22:31)
[2024-11-23 09:13] LABS: ABSOLUTE IMMATURE GRANULOCYTES 0.05 x10^3/uL (0.0-0.031); BASOPHILS # 0.01 x10^3/uL (0.01-0.08); HEMATOCRIT 19.7 % (40.1-51.0); HEMOGLOBIN 6.2 g/dL (13.7-17.5); MCHC 31.5 g/dl (32.3-36.5); MEAN CELL VOLUME 92.5 fl (79.0-92.2); MEAN PLT VOLUME 10.5 fl (9.4-12.4); MONOCYTE % 8.3 % (5.3-12.2); PLATELET COUNT 154 x10^3/uL (163-337); RDW 13.8 % (12.2-16.4)
[2024-11-23 09:45] LABS: POTASSIUM 4.8 mmol/L (3.5-5.1)
[2024-11-23 10:00] LABS: CALCIUM 9.1 mg/dL (8.5-10.1)
[2024-11-23 10:01] LABS: BLOOD UREA NITROGEN 24.6 mg/dL (7-18)
[2024-11-23 10:04] LABS: ALBUMIN 2.6 g/dl (3.4-5.0)
[2024-11-23 10:05] LABS: BILIRUBIN,TOTAL 0.3 mg/dL (0.2-1); TOT PROT 5.2 g/dl (6.4-8.2)
[2024-11-23] MEDS: LEVOTHYROXINE NA 50 MCG TABLET (FP) PO SCH (11:15)
[2024-11-23] MEDS ORDERED: SODIUM CHLORIDE 1,000 ML IV SCH (16:51)
[2024-11-23] MEDS ORDERED: NALOXONE HCL 0.4 MG/ML VIAL IVPUSH PRN (16:51)
[2024-11-23] MEDS: ATORVASTATIN CA 80 MG TABLET (FP) PO SCH (21:12)
[2024-11-24] MEDS: LEVOTHYROXINE NA 50 MCG TABLET (FP) PO SCH (06:10)
[2024-11-24 07:24] LABS: HEMATOCRIT 31.4 % (40.1-51.0); HEMOGLOBIN 10.4 g/dL (13.7-17.5); MCHC 33.1 g/dl (32.3-36.5); MEAN CELL VOLUME 87.7 fl (79.0-92.2); MEAN PLT VOLUME 10.6 fl (9.4-12.4); PLATELET COUNT 154 x10^3/uL (163-337); RDW 14.5 % (12.2-16.4)
[2024-11-24 07:37] LABS: POTASSIUM 4.3 mmol/L (3.5-5.1)
[2024-11-24 07:43] LABS: ALBUMIN 2.9 g/dl (3.4-5.0); CALCIUM 9.5 mg/dL (8.5-10.1)
[2024-11-24 07:44] LABS: BLOOD UREA NITROGEN 13.1 mg/dL (7-18); MAGNESIUM 2.1 mg/dL (1.8-2.4)
[2024-11-24 07:47] LABS: CREATININE 0.8 mg/dL (0.55-1.3); PHOSPHOROUS 2.8 mg/dL (2.5-4.9)
[2024-11-24 07:48] LABS: BILIRUBIN,TOTAL 0.7 mg/dL (0.2-1)
[2024-11-24] MEDS: FINASTERIDE 5 MG TABLET (FP) PO SCH (10:03)
[2024-11-24 10:59] VITALS: BMI 16.2
[2024-11-24 11:04] VITALS: BP 148/97; PULSE 93; RESP 17; TEMP 98.1
== END 2024-11-24 13:03 | disposition home or self-care (01) | DRG 907 ==
LOC: JER 03:14 → JERBED 06:35 → J5S 12:21 → OBSVTOIN 13:23 → J4W 11-23 14:43
PROVIDERS: ADMIT Internal Medicine; ATTEND Internal Medicine
PROC: 0TCB8ZZ Extirpation of Matter from Bladder, Via Natural or Artificial Opening Endoscopic (ICD-10-PCS; 2024-11-22)
PROC: 3C1ZX8Z Irrigation of Indwelling Device using Irrigating Substance, External Approach (ICD-10-PCS; 2024-11-22)
PROC: 3C1ZX8Z Irrigation of Indwelling Device using Irrigating Substance, External Approach (ICD-10-PCS; 2024-11-22)
PROC: 0W3R8ZZ Control Bleeding in Genitourinary Tract, Via Natural or Artificial Opening Endoscopic (ICD-10-PCS; principal; 2024-11-22 12:00)
DX: N99.820 Postprocedural hemorrhage of a genitourinary system organ or structure following a genitourinary system procedure (principal); E43 Unspecified severe protein-calorie malnutrition; G92.8 Other toxic encephalopathy; R47.01 Aphasia; N17.9 Acute kidney failure, unspecified; Z68.1 Body mass index [BMI] 19.9 or less, adult; I10 Essential (primary) hypertension; R33.9 Retention of urine, unspecified; E78.5 Hyperlipidemia, unspecified
CPT/HCPCS: 36415; 36430; 36600; 70450-TC; 71045-TC-FY; 80053; 81003; 82803; 82962; 83735; 84100; 85025; 85027; 85610; 85730; 86850; 86900; 86901; 86922; 87086; 93005; 93010; 94760; 99285-25; G0378; J0131; P9038; P9058